=== PATIENT | female | born 1975 | race Caucasian/White ===

== ENCOUNTER 2017-01-20 11:29 | Emergency (ER) | payer SELFPAY ==
[~2017-01-20] VITALS: Ht 167.6 cm; Wt 64.0 kg
[2017-01-20 11:31] VITALS: BP 158/89
[2017-01-20] MEDS ORDERED: BACITRACIN ZINC OINT UDPKT TOP ONE ×2 (12:30→15:15)
[2017-01-20] MEDS ORDERED: TETANUS, DIPHTHERIA, PERTUSSIS VAC/PF 0.5ML (>7YR OLD) IM ONE (12:30)
[2017-01-20] MEDS ORDERED: LIDOCAINE HCL 1% 20ML VIAL (Pyxis) INJ MC ONE (12:30)
[2017-01-20] MEDS ORDERED: IBUPROFEN 600MG TABLET PO ONE (12:30)
== END 2017-01-21 15:30 | disposition home or self-care (01) ==
LOC: ER 11:37
DX: S51.812A Laceration without foreign body of left forearm, initial encounter (principal); F12.10 Cannabis abuse, uncomplicated; Z88.0 Allergy status to penicillin; Y08.89XA Assault by other specified means, initial encounter; Y93.89 Activity, other specified; Y99.8 Other external cause status; Y92.89 Other specified places as the place of occurrence of the external cause
CPT/HCPCS: 12002; 90471; 90715; 99283; J3490; X7700; Z7610

== ENCOUNTER 2017-01-22 09:48 | Emergency (ER) | payer SELFPAY ==
[~2017-01-22] VITALS: Ht 165.1 cm; Wt 67.0 kg
[2017-01-22 09:51] VITALS: BP 111/65
== END 2017-01-22 11:00 | disposition home or self-care (01) ==
LOC: ER 10:20
DX: Z48.00 Encounter for change or removal of nonsurgical wound dressing (principal)
CPT/HCPCS: 99283; X7700; Z7610

== ENCOUNTER 2017-01-30 11:46 | Emergency (ER) | payer SELFPAY ==
[~2017-01-30] VITALS: Ht 160 cm; Wt 70.0 kg
[2017-01-30 13:05] VITALS: BP 96/63
== END 2017-01-30 17:38 | disposition home or self-care (01) ==
LOC: ER 17:01
DX: Z48.02 Encounter for removal of sutures (principal); Z48.00 Encounter for change or removal of nonsurgical wound dressing
CPT/HCPCS: 99281; Z7610

== ENCOUNTER 2017-09-22 12:07 | Emergency (ER) | payer MEDICAID ==
[~2017-09-22] VITALS: Ht 162.6 cm; Wt 73.0 kg
[2017-09-22 12:16] VITALS: BP 111/58
== END 2017-09-22 22:09 | disposition left against medical advice (07) ==
LOC: ER 13:06
DX: H57.11 Ocular pain, right eye (principal); H57.8 Other specified disorders of eye and adnexa; Z53.21 Procedure and treatment not carried out due to patient leaving prior to being seen by health care provider

== ENCOUNTER 2019-05-25 13:14 | Emergency (ER) | payer OTHER, MEDICAID ==
[~2019-05-25] VITALS: Ht 165.1 cm; Wt 65.0 kg
[2019-05-25 16:42] VITALS: BP 133/76
== END 2019-05-25 16:44 | disposition home or self-care (01) ==
LOC: ER 13:49
DX: S60.462A Insect bite (nonvenomous) of right middle finger, initial encounter (principal); W57.XXXA Bitten or stung by nonvenomous insect and other nonvenomous arthropods, initial encounter; Y93.89 Activity, other specified; Y92.89 Other specified places as the place of occurrence of the external cause; Y99.8 Other external cause status; F12.10 Cannabis abuse, uncomplicated
CPT/HCPCS: 99283

== ENCOUNTER 2020-02-21 17:21 | Emergency (ER) | payer MEDICAID, OTHER ==
[~2020-02-21] VITALS: Ht 165.1 cm; Wt 75.0 kg
[2020-02-21] MEDS ORDERED: ONDANSETRON HCL 4MG TABLET PO ONE (18:00)
[2020-02-21 18:37] VITALS: BP 127/68
== END 2020-02-21 18:39 | disposition home or self-care (01) ==
LOC: ER 17:21
DX: R11.2 Nausea with vomiting, unspecified (principal); Z20.828 Contact with and (suspected) exposure to other viral communicable diseases; R51 Headache; F12.10 Cannabis abuse, uncomplicated
CPT/HCPCS: 81025; 99283; Q0162; U0003